=== PATIENT | female | born 2000 | race Two or more races ===

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

== ENCOUNTER → 2019-04-23 | Emergency (ER) | payer BC, OTHER ==
[~2019-04-23] VITALS: Ht 152.4 cm; Wt 45.8 kg
[2019-04-23 18:28] VITALS: BP 112/65
--- NOTE | 2019-04-23 19:13 | NUR ---
Patient discharged to home in stable condition. Written and verbal after care instructions given. Patient verbalizes understanding of instruction.
== END | disposition home or self-care (01) ==
LOC: ER 18:34
DX: L30.9 Dermatitis, unspecified (principal); H57.89 Other specified disorders of eye and adnexa

== ENCOUNTER 2019-08-02 21:28 | Emergency (ER) | payer OTHER ==
[~2019-08-02] VITALS: Ht 152.4 cm; Wt 47.2 kg
[2019-08-02 22:26] VITALS: BP 103/70
== END 2019-08-02 22:59 | disposition home or self-care (01) ==
LOC: ER 21:30
DX: J06.9 Acute upper respiratory infection, unspecified (principal)

== ENCOUNTER 2019-08-10 23:05 | Emergency (ER) | payer OTHER ==
[~2019-08-10] VITALS: Ht 152.4 cm; Wt 47.2 kg
--- NOTE | 2019-08-11 00:02 | NUR ---
BIBISELF WITH FAMILY FROM HOME TO ER BED 4. AAOX4. NO RESP DISTRESS NOTED. AMBULATORY. C/O LOWER ABDOMINAL AND BILAT INGUINAL PAIN. PT REPORTS THAT SHE IS 17 WEEKS . PAIN IS RATE 7/10 WITH SENSATION OF CRAMPING. SHE ALSO REPORTS THAT THE ABDOMINAL PAIN FEELS LIKE KNOTS ALL OVER HER ABDOMEN. MD WAS AT BEDSIDE FOR EVAL. ORDERS RECEIVED, NOTED AND CARRIED OUT. OTOLARYNGOLOGY NURSE AT BEDSIDE FOR BLOOD DRAW.
[2019-08-11 00:50] LABS: CALCIUM, SERUM 8.9 mg/dL (8.5-10.1); CREATININE 0.5 mg/dL (0.6-1.3); POTASSIUM 4.1 mmol/L (3.5-5.1)
--- NOTE | 2019-08-11 04:16 | NUR ---
Patient discharged to home in stable condition. Written and verbal after care instructions given. Patient verbalizes understanding of instruction.Pt ambulatory with a steady gait
[2019-08-11 04:17] VITALS: BP 118/79
== END 2019-08-11 04:17 | disposition home or self-care (01) ==
LOC: ER 23:12
DX: O26.892 Other specified pregnancy related conditions, second trimester (principal); R19.7 Diarrhea, unspecified; R10.32 Left lower quadrant pain; R10.31 Right lower quadrant pain; Z3A.17 17 weeks gestation of pregnancy
CPT/HCPCS: 36415; 76805-TC; 80048-TC

== ENCOUNTER 2019-08-29 20:00 | Emergency (ER) | payer OTHER ==
[~2019-08-29] VITALS: Ht 152.4 cm; Wt 48.5 kg
--- NOTE | 2019-08-29 20:20 | NUR ---
1, PARA 0.
--- NOTE | 2019-08-29 20:20 | NUR ---
PT PRESENTED TO THE ER WITH A C/O SOB WITH EXCERTION AND WHILE TALKING. PT IS ABLE TO SPEAK IN FULL SENTENCES, BUT STATED THAT SHE HAS TO STOP TO CATCH HER BREATH. PT IS 19WKS . PT IS AA&O X 4. PT'S MOTHER IS AT THE BEDSIDE.
--- NOTE | 2019-08-29 20:40 | NUR ---
US TECH IS AT THE BEDSIDE.
--- NOTE | 2019-08-29 20:50 | NUR ---
US TECH FINISHED.
--- NOTE | 2019-08-29 21:47 | NUR ---
Patient discharged to home in stable condition. Written and verbal after care instructions given. Patient verbalizes understanding of instruction. Pt ambulated out with a steady gait. VSS.
[2019-08-29 21:48] VITALS: BP 91/56
== END 2019-08-29 21:48 | disposition home or self-care (01) ==
LOC: ER 20:00
DX: O00.01 Abdominal pregnancy with intrauterine pregnancy (principal); Z3A.20 20 weeks gestation of pregnancy
CPT/HCPCS: 76856-TC

== ENCOUNTER 2019-09-16 08:21 | Emergency (ER) | payer OTHER ==
[~2019-09-16] VITALS: Ht 152.4 cm; Wt 49.0 kg
[2019-09-16 08:57] VITALS: BP 111/68
--- NOTE | 2019-09-16 08:57 | NUR ---
PATIENT WAS SEEN BY DR. SHAW AND MEDICALLY CLEARED. NO DISTRESS NOTED. Patient discharged to home in stable condition. Written and verbal after care instructions given. Patient verbalizes understanding of instruction.
== END 2019-09-16 08:57 | disposition home or self-care (01) ==
LOC: ER 08:23
DX: O26.891 Other specified pregnancy related conditions, first trimester (principal); R10.84 Generalized abdominal pain; Z3A.00 Weeks of gestation of pregnancy not specified

== ENCOUNTER 2022-09-14 14:44 | Emergency (ER) | payer OTHER ==
[~2022-09-14] VITALS: Ht 152.4 cm; Wt 54.9 kg
--- NOTE | 2022-09-14 15:10 | NUR ---
VAGINAL SPOTTING AND ABDOMINAL CRAMPING SINCE YESTERDAY,TESTED (+) TO OTC TEST YESTERDAY
[2022-09-14 16:24] LABS: BILIRUBIN,URINE NEGATIVE (NEGATIVE); COLOR,URINE YELLOW (YELLOW); NITRITE, URINE NEGATIVE (NEGATIVE); PROTEIN,URINE NEGATIVE (NEGATIVE); UGLUCOSE NEGATIVE (NEGATIVE); UROBILINOGEN,URINE 0.2 EU/dL (0.2)
[2022-09-14 16:39] LABS: WBC,URINE 21-50 /HPF (0-3)
[2022-09-14 16:40] LABS: BASOPHILS % (AUTO) 0.2 % (0.0-2.0); EOSINOPHILS % (AUTO) 0.2 % (0.0-6.0); HEMATOCRIT 41 % (33-45); HEMOGLOBIN 13.6 g/dL (11.5-14.8); LYMPHOCYTES # (AUTO) 1.9 K/uL (0.8-4.8); LYMPHOCYTES % (AUTO) 19.2 % (20.0-44.0); MEAN CORPUSCULAR HGB CONC 33 g/dl (31.0-36.0); MEAN CORPUSCULAR VOLUME 90 fL (82-100); MONOCYTES # (AUTO) 0.5 K/uL (0.1-1.30); MONOCYTES % (AUTO) 5.6 % (2.0-12.0); NEUTROPHILS # (AUTO) 7.2 K/uL (1.8-8.9); NEUTROPHILS % (AUTO) 74.8 % (43.0-81.0); PLATELET COUNT (AUTO) 323 K/uL (150-450); RED BLOOD CELL COUNT(AUTO) 4.57 MIL/uL (4.0-5.2); WHITE BLOOD COUNT (AUTO) 9.7 K/uL (4.3-11.0)
[2022-09-14 16:40] LABS: BACTERIA,URINE 1+ /HPF (None Seen); LEUKOCYTE ESTERASE ,URINE 1+ (NEGATIVE); SQUAMOUS EPITHELIAL CELL,UR Few /HPF (None Seen)
[2022-09-14 17:29] LABS: CALCIUM, SERUM 9.1 mg/dL (8.5-10.1); CREATININE 0.7 mg/dL (0.6-1.3); POTASSIUM 3.7 mmol/L (3.5-5.1)
--- NOTE | 2022-09-14 17:41 | NUR ---
patient not candidate for rhogam
--- NOTE | 2022-09-14 17:52 | NUR ---
CALLED DR. DIA [phone] SPEAKING WITH ER DOCTOR.
[2022-09-14] MEDS ORDERED: NITR100C6 PO (18:18)
[2022-09-14 18:30] VITALS: BP 123/66
--- NOTE | 2022-09-14 18:30 | NUR ---
Patient discharged to home in stable condition. Written and verbal after care instructions given. Patient verbalizes understanding of instruction.
[2022-09-16] MEDS ORDERED: CEPH500C2 PO (15:42)
== END 2022-09-14 18:31 | disposition home or self-care (01) ==
LOC: ER 14:48
DX: N93.9 Abnormal uterine and vaginal bleeding, unspecified (principal); N83.299 Other ovarian cyst, unspecified side; N39.0 Urinary tract infection, site not specified
CPT/HCPCS: 36415; 76856-TC; 80048-TC; 81001; 84702-TC; 84703-TC; 85025-TC; 87086-TC